=== PATIENT | male | born 1995 | race Caucasian/White ===

== ENCOUNTER 2018-06-08 00:12 | Emergency (ER) | payer OTHER ==
[~2018-06-08] VITALS: Ht 182.9 cm; Wt 100.0 kg
[2018-06-08 00:19] VITALS: BP 131/73; TEMP 98
[2018-06-08 01:23] VITALS: PULSE 77
== END 2018-06-08 01:23 | disposition home or self-care (01) ==
LOC: COL.ER 00:12
DX: J02.9 Acute pharyngitis, unspecified (principal)
CPT/HCPCS: J1100